=== PATIENT | female | born 1975 | race Two or more races ===

== ENCOUNTER 2021-12-25 18:26 | Emergency (ER) | payer MEDICAID ==
[~2021-12-25] VITALS: Ht 147.3 cm; Wt 64.0 kg
--- NOTE | 2021-12-25 18:48 | NUR ---
RIGHT EYE REDNESS ASSOC. W/ (+) BLURRING OF VISION AND HEADACHE. VITALS ARE WITHIN NORMAL LIMITS. AWAITING MD ORDERS.
[2021-12-25 18:50] VITALS: BP 118/78
--- NOTE | 2021-12-25 19:36 | NUR ---
PATIENT TAKEN TO CT
[2021-12-25] MEDS ORDERED: CODE1CAP32 PO (21:09)
== END 2021-12-25 21:17 | disposition home or self-care (01) ==
LOC: ER 18:33
DX: R51.9 Headache, unspecified (principal); H11.31 Conjunctival hemorrhage, right eye; Z79.899 Other long term (current) drug therapy
CPT/HCPCS: 70450-TC